=== PATIENT | male | born 1975 | race Caucasian/White ===

== ENCOUNTER 2016-08-22 22:52 | Emergency (ER) | payer BC ==
[~2016-08-22] VITALS: Ht 167.6 cm; Wt 108.9 kg
[2016-08-22] MEDS ORDERED: ACETAMINOPHEN 325 MG TABLET ONE (23:12)
[2016-08-22] MEDS ORDERED: BACI/NEOM/POLY B OINT PKT 1 UDPKT PACKET ONE (23:12)
[2016-08-22] MEDS ORDERED: TDAP [DIPH/PERTUSSIS/TET] 0.5 ML VIAL IM ONE ×2 (23:12→23:30)
--- NOTE | 2016-08-22 23:20 | NUR ---
WOUNDS CLEANED WITH NS.
--- NOTE | 2016-08-22 23:25 | NUR ---
PT LEFT FOR CT.
[2016-08-22] MEDS ORDERED: ACETAMINOPHEN 325 MG TABLET PO ONE (23:30)
[2016-08-22] MEDS ORDERED: BACI/NEOM/POLY B OINT PKT 1 UDPKT PACKET TP ONE (23:30)
--- NOTE | 2016-08-22 23:37 | NUR ---
PT RETURNED FROM CT.
--- NOTE | 2016-08-23 00:10 | NUR ---
Patient discharged to home in stable condition. Written and verbal after care instructions given. Patient verbalizes understanding of instruction. PT AMBULATED OUT WITH A STEADY GAIT. VSS.
[2016-08-23 00:11] VITALS: BP 144/100
== END 2016-08-23 00:12 | disposition home or self-care (01) ==
LOC: ER 22:57
DX: S09.90XA Unspecified injury of head, initial encounter (principal); S00.01XA Abrasion of scalp, initial encounter; S50.311A Abrasion of right elbow, initial encounter; J45.909 Unspecified asthma, uncomplicated; I10 Essential (primary) hypertension; Z98.84 Bariatric surgery status; V03.99XA Pedestrian with other conveyance injured in collision with car, pick-up truck or van, unspecified whether traffic or nontraffic accident, initial encounter; Y93.89 Activity, other specified; Y92.830 Public park as the place of occurrence of the external cause; Y99.8 Other external cause status
CPT/HCPCS: 70450; 90471; 90715; 99284; A4606; Z7610